=== PATIENT | male | born 1995 | race Caucasian/White ===

== ENCOUNTER 2024-06-28 11:23 | Outpatient (AMB) | payer BC, SELFPAY ==
--- NOTE | 2024-06-28 11:31 | AM.OFFWIN_ITS ---
Intake Vital Signs 06/28/24 11:34 06/28/24 11:51 Height 6 ft 1 in Weight 219 lb BMI 28.9 BP 160/80 H 138/70 Blood Pressure Location Rt brachial Rt brachial Position Sitting Sitting Respiration 14 Pulse 83 Pulse Source Pulse Oximeter Temp 97.6 F Temp Source Oral Pulse Oximetry (%) 99 Oxygen Delivery Method Room Air Intake Visit Reasons: est/back pain down left leg Intake Note: Patient complaining of left lower hip side pain radiating down the left leg started this morning Allergies No Known Allergies Allergy (Verified 06/28/24 11:48) Medication List - Last Reconciled 06/28/24 by NAV Aguirre- No Known Home Meds Do you need a note to return to daycare/school/sports/work: Yes HPI HPI Comments History of Present Illness Details The patient is a 29-year-old male presenting with left lower back pain radiating down his left leg. The pain started approximately 3 hours ago without any known injury or trauma. 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 It initially caused weakness and difficulty walking, which improved slightly with medication (Tylenol or ibuprofen) provided by the school nurse. The pain is described as a stinging, shooting pain, localized to the back hip area, stopping above the knee. BP noted to be elevated today. The patient reports previous episodes of anxiety that have led to elevated blood pressure readings in the past. Denies fever, chills, n/v, changes in bowel or bladder, weakness of lower ext, loss of use or any other red flag sx assoc w/ back pain. Exam Awake alert NAD Neck FROM PERRLA No spinal tenderness, pain over L SI joint w/ palpation, no paraspinal muscle spasms, normal tandem walking and toe walking, about to heel walk but c/o that n ot feeling so hot . Normal strength, tone and reflexes. BLE neurovasc intact. Negative SLR bilat. + leg length discrepancy, L longer than R, able to do glute bridge c/o pressure in left lower back. Discussion Notes I discussed with the patient that the likely diagnosis is a sacroiliac joint dysfunction, which can cause significant discomfort and pain. The treatment plan includes prescribed anti-inflammatory medication to reduce pain and inflammation coupled with a muscle relaxant for symptomatic relief at night. I also emphasized the importance of following the home exercise regimen to aid in joint realignment and prevent future dislocations. Moving as a unit with limited twisting is crucial for recovery, and I provided guidance on avoiding movements that could worsen the condition. A follow-up with Dr. Parker has been arranged to ensure ongoing management and address any potential complications that might arise. Plan - Prescribe Diclofenac 12-hour anti-infl ammatory to be taken twice daily with food as needed. - Prescribe a muscle relaxant for use at night for symptom relief and muscle relaxation. - Provide home exercises aiming at reali gning the sacroiliac joint and streng thening supportive musculature. - Arrange follow-up with Dr. Parker to m onitor progress and adjust treatment if necessary. - Advise against movements that exacerba te the condition, such as twisting the upper body without the lower body. - Edu on reasons to RTO the sooner and/o r seek ED level of care. Patient was informed and verbally consented to the use of an ambient scribe for clinic note documentation during this visit. Patient Instructions - Take prescribed Diclofenac with food t wice daily PRN - Use muscle relaxant at night if necess rene. - Follow the provided home exercises to aid recovery. - Avoid any twisting movements that coul d strain the back further. - Return for follow-up with Dr. Parker i n three weeks or sooner if symptoms worsen. - Use heat or ice to alleviate additiona l discomfort as needed. Total time spent caring for the patient today was 30 minutes. This includes time spent before the visit reviewing the chart, time spent during the visit, and time spent after the visit on documentation, reviewing laboratory results, diagnostic imaging, medications, performing a medically necessary evaluation, counseling on diagnoses, care coordination, ordering appropriate tests, ordering appropriate medications, review of tests performed by other providers, reporting test results with the patient, communication with other healthcare providers. Physical Exam Vital Signs: Last Vital Signs Temp 97.6 F 06/28/24 11:34 Pulse 83 06/28/24 11:34 Resp 14 06/28/24 11:34 BP 160/80 H 06/28/24 11:34 Pulse Ox 99 06/28/24 11:34 Oxygen Delivery Method Room Air 06/28/24 11:34 BMI result Body Mass Index 28.9 Assessment & Plan Assessment & Plan (1) Sacroiliac joint dysfunction of left side: Code(s): M53.3 - Sacrococcygeal disorders, not elsewhere classified (2) Elevated BP without diagnosis of hypertension: Code(s): R03.0 - Elevated blood-pressure reading, without diagnosis of hypertension Plan . Medications: New diclofenac potassium 50 mg PO BID 30 days PRN 60 tabs 0RF pain tizanidine (Zanaflex) 2 mg (1/2 x 4 mg) PO BID 5 days PRN 5 tabs 0RF muscle spasticity Coding Level of Care Code Est Pt Level 4 (35896) Diagnoses Sacroiliac joint dysfunction of left side M53.3 Elevated BP without diagnosis of hypertension R03.0
[2024-06-28 11:34] VITALS: BP 160/80; PULSE 83; RESP 14; TEMP 36.4; O2SAT 99; BMI 28.9
[2024-06-28 11:51] VITALS: BP 138/70
--- OUTSIDE RECORDS SUMMARY | 2024-06-28 13:10 | XMS_ITS | Clinical Summary ---
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 Resolved Problems Problem Noted Date Diagnosed Date Resolved Date Concussion 08/02/2014 04/11/2017 Immunizations Name Administration Dates Next Due DTP 11/08/1997, 7,1996, 997 DTaP 5 05/11/2001 HPV, Quadrivalent 08/21/2014 Hep A, ped/adol 08/21/2014 Hep B, ped/adol 1996,1996,1996 Hib (PRP-T) 11/08/1997, 8,1996, 997,1996 IPV 05/11/2001 Influenza, injectable, quadrivalent 08/21/2014 Influenza, injectable, trivalent 05/15/2003 MMR 05/04/2000,05/10/1997 Meningococcal Conj (Menactra) MCV4P 08/21/2014,0 10/09/2008 OPV 1996,1996,1996 Tdap 10/09/2008 Varicella 10/09/2008,05/10/1997 Family History Relation Name Status Comments Brother Alive Brother: Alive and well Father Alive Father: Hyperte nsion Mother Alive Mother: Alive a nd well Other Family history of Asthma Paternal Grandfather Paterna l grandfather: Cancer - bladder/ prostate Sister Alive Sister: Alive a nd well Social History Tobacco Use Types Packs/Day Years Used Date Smoking Tobacco: Never Smokeless Tobacco: Never Comments:Never smoker Sex and Gender Information Value Date Recorded Sex Assigned at Not on file Legal Sex Male 5:09 PM EDT Gender Identity Not on file Sexual Orientation Not on file Last Filed Vital Signs Vital Sign Reading Time Taken Comments Blood Pressure 120/80 04/09/2017 10:56 AM EDT Pulse 84 04/09/2017 10:56 AM EDT Temperature 36.6 ??C (97.8 ??F) 04/09/2017 10:56 AM E DT Respiratory Rate - - Oxygen Saturation - - Inhaled Oxygen Concentration - - Weight 98.5 kg (217 lb 2 oz) 04/09/2017 10:56 AM EDT Height 186.9 cm (6' 1.6 ) 05/08/2016 12:00 AM ES T Body Mass Index 28.18 05/08/2016 12:00 AM EST Plan of Treatment Health Maintenance Due Date Last Done Comments HPV Vaccines (2 - Male 3-dose series) 09/18/2014 08/21/2014 Hepatitis A Vaccines (2 of 2 - 2-dose series) 02/21/2015 08/21/2014 DTaP,Tdap,and Td Vaccines (7 - Td or Tdap) 10/09/2018 10/09/2008, 05/11/2001, 11/08/1997, Additional history exists Influenza Vaccines (#1) 2024 08/21/2014, 05/15 COVID-19 Vaccine ( season) 2024 Hepatitis B Vaccines Completed 1996, 1996, 1996 HIB Vaccines Completed 11/08/1997, 08/06, 1996, Additional history exists MMR Vaccines Completed 05/04/2000, 05/10/1997 IPV Vaccines Completed 05/11/2001, 09/1996, 1996, Additional history exists Varicella Vaccines Completed 10/09/2008, 05/10/1997 Meningococcal Vaccine Completed 08/21/2014, 009 Men B Vaccine Aged Out No longer dat dumont based on patient's age to complete this topic Pneumococcal Vaccine Aged Out No long er eligible based on patient's age to complete this topic Insurance [facility] HMO Care Teams Casting Room Helper Relationship Specialty Start Date End Date Liana Sams MD PCP - General 01/15/17
--- OUTSIDE RECORDS SUMMARY | 2024-06-28 13:10 | XMS_ITS | Encounter Summary ---
Author Organization [facility] Address [address] [place] [phone] Phone Care Team Providers Care Take Off Man Name Role Phone Liana Sams MD Primary Care Provider Unavailabl e Encounter Details Date Type Department Care Team (Late st Contact Info) Description 01/21/2017 Conversion Encounter [facility] - [address] [address] Social History Tobacco Use Types Packs/Day Years Used Date Smoking Tobacco: Never Comments:Never smoker Sex and Gender Information Value Date Recorded Sex Assigned at Not on file Legal Sex Male 5:09 PM EDT Gender Identity Not on file Sexual Orientation Not on file documented as of this encounter Plan of Treatment Not on file documented as of this encounter Visit Diagnoses Not on filedocumented in this encounter Care Teams Take Off Man Relationship Specialty Start Date End Date Liana Sams MD PCP - General 01/15/17 documented as of this encounter
--- OUTSIDE RECORDS SUMMARY | 2024-06-28 13:11 | XMS_ITS | Encounter Summary ---
Author Organization [facility] Address [address] [place] [phone] Phone Care Team Providers Care Piano Regulator Name Role Phone Liana Sams MD Primary Care Provider Unavailabl e Encounter Details Date Type Department Care Team (Late st Contact Info) Description 06/28/2012 Documentation [facility] [place] Family Medicine [address] [place], [place] [phone] Family Medicine, Physician [address] [place] [address] Social History Tobacco Use Types Packs/Day Years Used Date Smoking Tobacco: Never Assessed Sex and Gender Information Value Date Recorded Sex Assigned at Not on file Legal Sex Male 5:09 PM EDT Gender Identity Not on file Sexual Orientation Not on file documented as of this encounter Plan of Treatment Not on file documented as of this encounter Visit Diagnoses Not on filedocumented in this encounter Care Teams Piano Regulator Relationship Specialty Start Date End Date Liana Sams MD PCP - General 01/15/17 documented as of this encounter
--- OUTSIDE RECORDS SUMMARY | 2024-06-28 13:11 | XMS_ITS | Encounter Summary ---
Author Organization [facility] Address [address] [place] [phone] Phone Care Team Providers Care Screw Machine Adjuster Automatic Name Role Phone Liana Sams MD Primary Care Provider Unavailabl e Encounter Details Date Type Department Care Team (Late st Contact Info) Description 07/01/2012 Documentation [facility] [place] Family Medicine [address] [place], [place] [phone] Family Medicine, Physician [address] [place] [address] Social History Tobacco Use Types Packs/Day Years [...] on filedocumented in this encounter Care Teams Screw Machine Adjuster Automatic Relationship Specialty Start Date End Date Liana Sams MD PCP - General 01/15/17 documented as of this encounter
--- OUTSIDE RECORDS SUMMARY | 2024-06-28 13:11 | XMS_ITS | Encounter Summary ---
Author Organization [facility] Address [address] [place] [phone] Phone Care Team Providers Care Engagement Lead Name Role Phone Liana Sams MD Primary Care Provider Unavailabl e Encounter Details Date Type Department Care Team (Late st Contact Info) Description 03/27/2014 Documentation [facility] [place] [address] [place], [place] [phone] Family Medicine, Physician [address] [place] [address] Social History Tobacco Use Types Packs/Day Years [...] on filedocumented in this encounter Care Teams Engagement Lead Relationship Specialty Start Date End Date Liana Sams MD PCP - General 01/15/17 documented as of this encounter
--- OUTSIDE RECORDS SUMMARY | 2024-06-28 13:11 | XMS_ITS | Encounter Summary ---
Author Organization [facility] Address [address] [place] [phone] Phone Care Team Providers Care Numerical Control Tool Programmer Name Role Phone Liana Sams MD Primary Care Provider Unavailabl e Encounter Details Date Type Department Care Team (Late st Contact Info) Description 12/26/2012 Documentation [facility] [place] Family Medicine [address] [place], [place] [phone] Family Medicine, Physician [address] [place] [address] Social History Tobacco Use Types Packs/Day Years [...] on filedocumented in this encounter Care Teams Numerical Control Tool Programmer Relationship Specialty Start Date End Date Liana Sams MD PCP - General 01/15/17 documented as of this encounter
--- OUTSIDE RECORDS SUMMARY | 2024-06-28 13:11 | XMS_ITS | Encounter Summary ---
Author Organization [facility] Address [address] [place] [phone] Phone Care Team Providers Care Firer Retort Name Role Phone Liana Sams MD Primary Care Provider Unavailabl e Encounter Details Date Type Department Care Team (Late st Contact Info) Description 03/27/2014 Documentation [facility] [place] [address] [place], [place] [phone] Family Medicine, Physician [address] [place] [address] Social History Tobacco Use Types Packs/Day Years [...] on filedocumented in this encounter Care Teams Firer Retort Relationship Specialty Start Date End Date Liana Sams MD PCP - General 01/15/17 documented as of this encounter
--- OUTSIDE RECORDS SUMMARY | 2024-06-28 13:11 | XMS_ITS | Encounter Summary ---
Author Organization [facility] Address [address] [place] [phone] Phone Care Team Providers Care Safety Instruction Police Officer Name Role Phone Liana Sams MD Primary Care Provider Unavailabl e Encounter Details Date Type Department Care Team (Late st Contact Info) Description 06/21/2014 Documentation [facility] [place] Family Medicine [address] [place], [place] [phone] Family Medicine, Physician [address] [place] [address] Social History Tobacco Use Types Packs/Day Years [...] on filedocumented in this encounter Care Teams Safety Instruction Police Officer Relationship Specialty Start Date End Date Liana Sams MD PCP - General 01/15/17 documented as of this encounter
== END 2024-06-28 12:05 | disposition home or self-care (01) ==
LOC: HO.HMCWIW 11:23
PROVIDERS: PCP Internal Medicine; Visit Provider Nurse Practitioner Family
DX: M53.3 Sacrococcygeal disorders, not elsewhere classified (principal); R03.0 Elevated blood-pressure reading, without diagnosis of hypertension

== ENCOUNTER → 2024-06-28 11:23 | Outpatient (BNVA) | payer BC, SELFPAY | PROVIDERS: PCP Internal Medicine; Visit Provider Nurse Practitioner Family ==